=== PATIENT | female | born 1975 | race Caucasian/White ===

== ENCOUNTER 2017-08-07 09:11 | Emergency (ER) | payer OTHER ==
[~2017-08-07] VITALS: Ht 157.5 cm; Wt 95.3 kg
[2017-08-07] MEDS ORDERED: VISTARIL25 MG PO (11:27)
== END 2017-08-07 17:54 | disposition home or self-care (01) ==
LOC: ER 09:11
DX: K29.60 Other gastritis without bleeding (principal)